=== PATIENT | male | born 1950 | race Caucasian/White ===

== ENCOUNTER 2022-03-13 00:15 | Emergency (ER) | payer OTHER, BC ==
[2022-03-13] MEDS ORDERED: MECLIZINE HCL 25 MG TABLET (FP) PO ONE (00:21)
[2022-03-13] MEDS ORDERED: ONDANSETRON 4 MG/2 ML VIAL IVPB ONE (00:21)
[2022-03-13] MEDS ORDERED: SODIUM CHLORIDE 0.9% 500 ML INFUS.BAG IV ONE (00:21)
[2022-03-13 00:36] VITALS: BP 150/73; PULSE 52; RESP 17; TEMP 97.6; BMI 24.2
[2022-03-13] MEDS ORDERED: ONDANSETRON 4 MG/2 ML VIAL ONE (00:45)
[2022-03-13] MEDS ORDERED: MECLIZINE HCL 25 MG TABLET (FP) ONE (00:45)
[2022-03-13 01:53] LABS: BASO % 0.4 % (0-2.0); EOS % 0.7 % (0-4.5); HEMATOCRIT 39.6 % (35.4-49); LYMPH % 14.6 % (8-40); MEAN CELL VOLUME 84.9 fl (80-96); MEAN PLT VOLUME 9.6 fl (7.5-11.1); MONO % 9.2 % (3.8-10.2); NEUT % 75.1 % (42.8-82.8); PLATELET COUNT 221 10^3/uL (134-434); RBC 4.66 M/mm3 (4.00-5.60); RDW 14.7 % (11.9-15.9); WHITE BLOOD COUNT 8.3 K/mm3 (4.0-10.0)
[2022-03-13 01:58] LABS: CALCIUM 9.2 mg/dL (8.5-10.1)
[2022-03-13 01:59] LABS: ALBUMIN 3.8 g/dl (3.4-5.0); BLOOD UREA NITROGEN 34.2 mg/dL (7-18)
[2022-03-13 02:01] LABS: CREATININE 1.2 mg/dL (0.55-1.3)
[2022-03-13 02:04] LABS: BILIRUBIN,TOTAL 0.3 mg/dL (0.2-1); TOT PROT 7.7 g/dl (6.4-8.2)
== END 2022-03-13 02:21 | disposition home or self-care (01) ==
LOC: FER 00:15
PROC: 3E033GC Introduction of Other Therapeutic Substance into Peripheral Vein, Percutaneous Approach (ICD-10-PCS; principal; 2022-03-13)
DX: R11.10 Vomiting, unspecified (principal)
CPT/HCPCS: 36415; 71045-TC-FY; 80053; 84484; 85025; 93005; 99284-25